=== PATIENT | male | born 1985 | race Caucasian/White ===

== ENCOUNTER 2017-05-28 22:14 | Emergency (ER) | payer OTHER ==
[2017-05-28 22:17] VITALS: BP 140/79
[2017-05-28] MEDS ORDERED: MOTRIN PO ONE (23:11)
[2017-05-28] MEDS ORDERED: BOOSTRIX IM ONE (23:12)
--- NOTE | 2017-05-28 23:15 | Emergency Department Report ---
Upper Extremity - HPI Chief Complaint: Extremity Injury, Upper Stated Complaint: FINGER LAC Time Seen by Provider: 05/28/17 22:41 Upper Extremity: Left Index Finger Occurred When: Today Mechanism: Crush Severity: moderate Symptoms: Yes Pain with Movement, Yes Swelling, Yes Bruising/Ecchymosis, Yes Laceration or Abrasion, No Deformity, No Limited Range of Movement, No Numbness , No Weakness Other History: 32-year-old male past medical history none presents with complaint of pain and lacerations to left distal index fingertip. Patient states that while at work this distal index fingertip was caught in a machine. Distal left fingertip past DIP joint was briefly crushed by a blade on machine. Denies injury to any other body part was pinched for less than 20 seconds as per patient. Patient immediately irrigated wound and states that he received first aid from his coworkers patient is currently awake alert and oriented 3 again denies any injuries to any other body part other than distal left index fingertip. Unaware of tetanus status. Visible laceration to distal left index finger at distal tuft ED Review of Systems ROS: Stated complaint: FINGER LAC Other details as noted in HPI Constitutional: denies: chills, fever Eyes: denies: eye pain, eye discharge, vision change ENT: denies: ear pain, throat pain Respiratory: denies: cough, shortness of breath, wheezing Cardiovascular: denies: chest pain, palpitations Endocrine: no symptoms reported Gastrointestinal: denies: abdominal pain, nausea, diarrhea Genitourinary: denies: urgency, dysuria Musculoskeletal: denies: back pain, joint swelling, arthralgia Skin: denies: rash, lesions Neurological: denies: headache, weakness, paresthesias Psychiatric: denies: anxiety, depression Hematological/Lymphatic: denies: easy bleeding, easy bruising ED Past Medical Hx - Past Medical History Hx Asthma: Yes ( CHILD ) Hx HIV: No - Surgical History Past Surgical History?: No - Social History Smoking Status: Never Smoker Substance Use Type: None - Medications Home Medications: Home Medications Medication Instructions Recorded Confirmed Last Taken Type Acetaminophen/Codeine [Tylenol 1 tab PO Q6H PRN #3 tab 05/28/17 Unknown Rx /Codeine # 3 tab] Bacitracin Zinc [Antibiotic] 1 applicatio TP BID #1 oint...g. 05/28/17 Unknown Rx Cephalexin [Keflex] 500 mg PO Q12HR #14 cap 05/28/17 Unknown Rx Ibuprofen [Motrin] 800 mg PO Q8HR PRN #20 tablet 05/28/17 Unknown Rx Upper Extremity Exam - Exam General: Vital signs noted. No distress. Alert and acting appropriately. Head and Torso: No HEENT Abnormality, No Neck Tenderness, No Chest/Lungs Abnormality, No Abdominal Tenderness, No Back Tenderness Shoulder Exam: Yes Normal Range of Motion in Shoulder, No Shoulder Tenderness, No Clavicle Tenderness, No Shoulder Deformity, No AC Joint Tenderness Arm Exam: No Arm/Humerus Tenderness, No Arm Deformity Elbow: No Elbow Tenderness, No Normal Range of Motion in Elbow, No Elbow Deformity Forearm: No Forearm Tenderness, No Forearm Deformity, No Pain with Pronation, No Pain with Supination Wrist: Yes Normal ROM in Wrist (wrist flexion and extension intact), No Wrist Tenderness, No Wrist Deformity, No Snuffbox Tenderness, No Pain with Axial Thumb Compression Hand: Yes Hand Deformity, Yes Digit Tenderness (left distal index finger), Yes Normal ROM in Digit(s) (range of motion intact in all joints left hand), Yes Digit(s) Deformity (laceration swelling and ecchymosis at distal tuft of left index finger), No Hand Tenderness, No Tendon Dysfunction CMS Exam: Yes Broken Skin, Yes Normal Distal Pulses (radial ulnar and brachial pulses strong to palpation left upper extremity), Yes Normal Capillary Refill ( capillary refill less than 1 second distal left index finger), Yes Normal Distal Sensation Hand L/R Front: 1 - laceration here Hand L/R Back: 1 - Minimal to no involvement of nail bed, nail is essentially intact area of less than 5 mm slightly cracked at nail edge ED Course Vital Signs 05/28/17 22:17 Temperature 98.2 F Pulse Rate 90 Respiratory 16 Rate Blood Pressure 140/79 [Right] O2 Sat by Pulse 100 Oximetry - Laceration /Wound Repair Left Distal Finger Wound Location: upper extremity (left distal index fingertip) Wound Length (cm): 2 Wound's Depth, Shape: superficial, linear Irrigated w/ Saline (ccs): 1,000 Anesthesia: 1% Lidocaine Volume Anesthetic (ccs): 5 Wound Debrided: minimal Wound Repaired With: sutures Suture Size/Type: 5:0, nylon Number of Sutures: 2 Layer Closure?: No Sterile Dressing Applied?: No ED Medical Decision Making - Medical Decision Making A/P: Left index finger Laceration 1-sutures to be removed in 7 days. Minimal involvement of nail, nailbed is intact 2-tetanus updated today 3-Motrin when necessary, triple antibiotic ointment, short course Keflex 4- pt advised to return to the ED for any fevers chills pus drainage erythema at site of laceration Critical care attestation.: If time is entered above; I have spent that time in minutes in the direct care of this critically ill patient, excluding procedure time. ED Disposition Clinical Impression: Laceration of left index finger Qualifiers: Encounter type: initial encounter Damage to nail status: with damage Foreign body presence: without foreign body Qualified Code(s): S61.311A - Laceration without foreign body of left index finger with damage to nail, initial encounter Disposition: TO HOME OR SELFCARE Is pt being admited?: No Does the pt Need Aspirin: No Condition: Stable Instructions: Laceration (ED), Suture Care (ED), Finger Laceration (ED) Additional Instructions: Sutures to be removed in 7-10 days Prescriptions: Acetaminophen/Codeine [Tylenol /Codeine # 3 tab] 1 tab PO Q6H PRN #3 tab PRN Reason: Pain Bacitracin Zinc [Antibiotic] 1 applicatio TP BID #1 oint...g. Cephalexin [Keflex] 500 mg PO Q12HR #14 cap Ibuprofen [Motrin] 800 mg PO Q8HR PRN #20 tablet PRN Reason: Pain Referrals: ROZINA ROBERTO MD [Primary Care Provider] - 3-5 Days Forms: Accompanied Note, Work/School Release Form(ED) Time of Disposition: 23:45
[2017-05-28] MEDS ORDERED: TRIPLE ANTIBIOTIC TP ONE (23:48)
--- NOTE | 2017-05-29 00:37 | XRay Report ---
FINAL REPORT EXAM: XR FINGER(S) 2+V LT HISTORY: ? distal left index finger fracture, pain COMPARISON: None available. FINDINGS: Two views of the left 2nd finger obtained. On the lateral view, there is a bony fragment at the volar base of the 2nd middle phalanx. This appears filled the work corticated and may reflect remote avulsive injury. Correlation for focal tenderness. No other focal bony findings. Joint spaces are preserved. IMPRESSION: Small bony fragment the volar base of the 2nd middle phalanx. This appears fairly well corticated may reflect remote avulsive injury. Correlation for focal tenderness. No other acute bony findings.
== END 2017-05-28 23:09 | disposition home or self-care (01) ==
LOC: ED 22:14
DX: S61.211A Laceration without foreign body of left index finger without damage to nail, initial encounter (principal); X58.XXXA Exposure to other specified factors, initial encounter; Y93.89 Activity, other specified; Y92.89 Other specified places as the place of occurrence of the external cause; Y99.8 Other external cause status
CPT/HCPCS: 90471; 90715; 99283; A6250